=== PATIENT | female | born 1995 | race African-American/Black ===

== ENCOUNTER 2017-01-22 04:20 | Emergency (ER) | payer OTHER, SELFPAY ==
[2017-01-22] MEDS ORDERED: Sodium Chloride 0.9% 1000 ML 1,000 ML IV STA (04:37)
[2017-01-22] MEDS ORDERED: Sodium Chloride 0.9% 1000 ML 1,000 ML ONE (04:42)
--- NOTE | 2017-01-22 04:42 | ERPHSYRPT ---
- History of Present Illness Time Seen by Provider: 01/22/17 04:30 Historian: patient Exam Limitations: clinical condition Patient Subjective Stated Complaint: Pt sts pain in center of chest that radiates upward in chest since 1999 last night. Last meal prior to this was 1800. Pt sts nausea and vomiting x 2. Sts shortness of breath and diaphoresis with pain. Denies cardiac history, denies family hx of early onset cardiac disease. Triage Nursing Assessment: Pt alert, oriented, answers all questions appropriately. skin p/w/d, resps non-labored. 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 SPO2 97% room air. Physician History: PATIENT COMPLAINS OF SHARP MID STERNAL PAIN DISCOMFORT SINCE 8PM LAST NIGHT. 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 DENIES COUGH, DYSPNEA, FEVER, RADIATION OF PAIN TO NECK JAW OR BACK. Timing/Duration: yesterday Activities at Onset: none Quality: sharpness, stabbing Location: central Chest Pain Radiation: no radiation Severity of Pain-Max: moderate Severity of Pain-Current: moderate Modifying Factors: Improves With: breathing Associated Symptoms: hurts to breathe Prior Chest Pain/Cardiac Workup: no prior chest pain Nitro Today/Relief: no nitro taken today Aspirin Treatment Today: no aspirin today Allergies/Adverse Reactions: Sulfa (Sulfonamide Antibiotics) Allergy (Verified 01/22/17 04:23) Rash venom-honey bee [bee venom (honey bee)] Allergy (Verified 07/19/15 07:49) Hx Tetanus, Diphtheria Vaccination/Date Given: Yes Hx Influenza Vaccination/Date Given: Yes Hx Pneumococcal Vaccination/Date Given: No Immunizations Up to Date: Yes - Review of Systems Constitutional: No Fever, No Chills Eyes: No Symptoms Ears, Nose, & Throat: No Symptoms Respiratory: No Symptoms, No Cough, No Dyspnea Cardiac: No Chest Pain, No Edema, No Syncope Abdominal/Gastrointestinal: No Symptoms, No Abdominal Pain, No Nausea, No Vomiting, No Diarrhea Genitourinary Symptoms: No Symptoms, No Dysuria Musculoskeletal: No Symptoms, No Back Pain, No Neck Pain Skin: No Rash Neurological: No Dizziness, No Focal Weakness, No Sensory Changes Psychological: No Symptoms Endocrine: No Symptoms All Other Systems: Reviewed and Negative - Past Medical History Pertinent Past Medical History: No Neurological History: No Pertinent History ENT History: No Pertinent History Cardiac History: No Pertinent History Respiratory History: No Pertinent History Endocrine Medical History: No Pertinent History Musculoskeletal History: No Pertinent History GI Medical History: No Pertinent History History: No Pertinent History Psycho-Social History: No Pertinent History Female Reproductive Disorders: Endometriosis, Other - Past Surgical History Past Surgical History: No - Social History Smoking Status: Never smoker Exposure to second hand smoke: No Drug Use: none Patient Lives Alone: No - Female History Hx Last Menstrual Period: last week - Nursing Vital Signs Nursing Vital Signs: Initial Vital Signs Temperature 98.5 F 01/22/17 04:24 Pulse Rate 52 L 01/22/17 04:24 Respiratory Rate 16 01/22/17 04:24 Blood Pressure 122/60 01/22/17 04:24 O2 Sat by Pulse Oximetry 98 01/22/17 04:24 Pain Scale Pain Intensity 6 - Physical Exam General Appearance: no apparent distress, alert Eye Exam: PERRL/EOMI, eyes nml inspection Ears, Nose, Throat Exam: normal ENT inspection, moist mucous membranes Neck Exam: normal inspection, non-tender, supple, full range of motion Respiratory Exam: normal breath sounds, chest tenderness (PARASTERNAL TENDERNESS T4 TO T7 UPON PALPATION), lungs clear, No respiratory distress Cardiovascular Exam: regular rate/rhythm, normal heart sounds Gastrointestinal/Abdomen Exam: soft, normal bowel sounds (NONTENDER), No tenderness, No mass Back Exam: normal inspection, No CVA tenderness, No vertebral tenderness Extremity Exam: normal inspection, normal range of motion Neurologic Exam: alert, oriented x 3, cooperative, normal mood/affect, sensation nml, No motor deficits Skin Exam: normal color, warm, dry SpO2 Interpretation: normal SpO2: 98 Oxygen Delivery: Room Air - Course EKG Interpreted by Me: RATE, Sinus Rhythm, Sinus Carlos (RATE 47) - Radiology Exams Chest X-ray Interpretation: Interpreted by me, Negative, No Infiltrates Ordered Tests: Active Orders 24 hr Category Date Time Status IV Insertion STAT Care 01/22/17 04:37 Active CHEST 1 VIEW (PORTABLE) Stat Exams 01/22/17 05:36 Ordered BMP Stat Lab 01/22/17 04:50 Completed CBC W DIFF Stat Lab 01/22/17 04:50 Completed D-DIMER QUANTITATION Stat Lab 01/22/17 04:50 Completed HCG,QUALITATIVE URINE Stat Lab 01/22/17 Uncollected TROPONIN Q3H Lab 01/22/17 04:50 Received TROPONIN Q3H Lab 01/22/17 07:45 Ordered TROPONIN Q3H Lab 01/22/17 10:45 Ordered TROPONIN Q3H Lab 01/22/17 13:45 Ordered TROPONIN Q3H Lab 01/22/17 16:45 Ordered UA W/RFX UR CULTURE Stat Lab 01/22/17 04:45 Completed Urine Triage Profile Stat Lab 01/22/17 04:45 Completed Medication Summary Generic Name Dose Route Start Last Admin Trade Name Freq PRN Reason Stop Dose Admin Sodium Chloride 1,000 mls @ 500 mls/hr 01/22/17 04:37 01/22/17 04:43 Sodium Chloride 0.9% 1000 Ml IV 01/22/17 06:36 500 mls/hr .Q2H STA Administration Ketorolac Tromethamine 30 mg 01/22/17 05:36 Toradol 30 Mg Injection IV 01/22/17 05:37 STAT ONE Discontinued Medications Generic Name Dose Route Start Last Admin Trade Name Freq PRN Reason Stop Dose Admin Acetaminophen 650 mg 01/22/17 04:47 01/22/17 04:55 Tylenol 325 Mg PO 01/22/17 04:48 650 mg STAT STA Administration Acetaminophen Confirm 01/22/17 04:54 Tylenol 325 Mg Administered 01/22/17 04:55 Dose 650 mg .ROUTE .STK-MED ONE Sodium Chloride Confirm 01/22/17 04:42 Sodium Chloride 0.9% 1000 Ml Administered 01/22/17 04:43 Dose 1,000 mls @ ud .ROUTE .STK-MED ONE Lab/Rad Data: Laboratory Result Diagrams 01/22/17 04:50 01/22/17 04:50 Laboratory Results 01/22/17 01/22/17 01/22/17 Range/Units 05:28 04:50 04:50 WBC (4.0-10.5) K/mm3 RBC (4.1-5.4) M/mm3 Hgb (12.0-16.0) gm/dl Hct (35-47) % MCV (78-100) fl MCH (26-32) pg MCHC (32-36) g/dl RDW (11.5-14.0) % Plt Count (150-450) K/mm3 MPV (6-9.5) fl Gran % (36.0-66.0) % Lymphocytes % (24.0-44.0) % Monocytes % (0.0-12.0) % Eosinophils % (0.00-5.0) % Basophils % (0.0-0.4) % Basophils # (0-0.4) D-Dimer 498 (0-500) ng/mL Sodium (136-145) mEq/L Potassium (3.5-5.1) mEq/L Chloride (98-107) mEq/L Carbon Dioxide (21-32) mEq/L Anion Gap (5-15) MEQ/L BUN (9-20) mg/dL Creatinine (0.55-1.30) mg/dl Estimated GFR ML/MIN Glucose (70-110) MG/DL Calcium (8.5-10.1) mg/dL Troponin I < 0.017 (0.000-0.056) ng/ml Ur Collection Type Urine Color (YELLOW) Urine Appearance (CLEAR) Urine pH (5-6) Ur Specific [place] (1.005-1.025) Urine Protein (Negative) Urine Ketones (NEGATIVE) Urine Blood (0-5) Turner/ul Urine Nitrite (NEGATIVE) Urine Bilirubin (NEGATIVE) Urine Urobilinogen (0-1) mg/dL Ur Leukocyte Esterase (NEGATIVE) Urine Glucose (NEGATIVE) mg/dL Urine HCG, Qual NEGATIVE (Negative) Urine Opiates Level (NEGATIVE) Ur Methadone (NEGATIVE) Urine Barbiturates (NEGATIVE) Ur Phencyclidine (PCP) (NEGATIVE) Urine Amphetamine (NEGATIVE) U Benzodiazepine Level (NEGATIVE) Urine Cocaine (NEGATIVE) Urine Marijuana (THC) (NEGATIVE) Specimen Received 01/22/17 01/22/17 01/22/17 Range/Units 04:50 04:50 04:45 WBC 11.9 H (4.0-10.5) K/mm3 RBC 4.34 (4.1-5.4) M/mm3 Hgb 13.1 (12.0-16.0) gm/dl Hct 39.2 (35-47) % MCV 90.3 (78-100) fl MCH 30.2 (26-32) pg MCHC 33.4 (32-36) g/dl RDW 12.8 (11.5-14.0) % Plt Count 261 (150-450) K/mm3 MPV 10.3 H (6-9.5) fl Gran % 66.6 H (36.0-66.0) % Lymphocytes % 22.0 L (24.0-44.0) % Monocytes % 8.7 (0.0-12.0) % Eosinophils % 2.4 (0.00-5.0) % Basophils % 0.3 (0.0-0.4) % Basophils # 0.04 (0-0.4) D-Dimer (0-500) ng/mL Sodium 140 (136-145) mEq/L Potassium 3.9 (3.5-5.1) mEq/L Chloride 104 (98-107) mEq/L Carbon Dioxide 29.6 (21-32) mEq/L Anion Gap 10.5 (5-15) MEQ/L BUN 14 (9-20) mg/dL Creatinine 0.83 (0.55-1.30) mg/dl Estimated GFR > 60 ML/MIN Glucose 97 (70-110) MG/DL Calcium 8.8 (8.5-10.1) mg/dL Troponin I (0.000-0.056) ng/ml Ur Collection Type CLEAN CATCH Urine Color YELLOW (YELLOW) Urine Appearance CLEAR (CLEAR) Urine pH 8.0 (5-6) Ur Specific [place] 1.005 (1.005-1.025) Urine Protein NEGATIVE (Negative) Urine Ketones NEGATIVE (NEGATIVE) Urine Blood NEGATIVE (0-5) Turner/ul Urine Nitrite NEGATIVE (NEGATIVE) Urine Bilirubin NEGATIVE (NEGATIVE) Urine Urobilinogen NORMAL (0-1) mg/dL Ur Leukocyte Esterase NEGATIVE (NEGATIVE) Urine Glucose NEGATIVE (NEGATIVE) mg/dL Urine HCG, Qual (Negative) Urine Opiates Level (NEGATIVE) Ur Methadone (NEGATIVE) Urine Barbiturates (NEGATIVE) Ur Phencyclidine (PCP) (NEGATIVE) Urine Amphetamine (NEGATIVE) U Benzodiazepine Level (NEGATIVE) Urine Cocaine (NEGATIVE) Urine Marijuana (THC) (NEGATIVE) Specimen Received 01/22/17:0430 01/22/17 Range/Units 04:45 WBC (4.0-10.5) K/mm3 RBC (4.1-5.4) M/mm3 Hgb (12.0-16.0) gm/dl Hct (35-47) % MCV (78-100) fl MCH (26-32) pg MCHC (32-36) g/dl RDW (11.5-14.0) % Plt Count (150-450) K/mm3 MPV (6-9.5) fl Gran % (36.0-66.0) % Lymphocytes % (24.0-44.0) % Monocytes % (0.0-12.0) % Eosinophils % (0.00-5.0) % Basophils % (0.0-0.4) % Basophils # (0-0.4) D-Dimer (0-500) ng/mL Sodium (136-145) mEq/L Potassium (3.5-5.1) mEq/L Chloride (98-107) mEq/L Carbon Dioxide (21-32) mEq/L Anion Gap (5-15) MEQ/L BUN (9-20) mg/dL Creatinine (0.55-1.30) mg/dl Estimated GFR ML/MIN Glucose (70-110) MG/DL Calcium (8.5-10.1) mg/dL Troponin I (0.000-0.056) ng/ml Ur Collection Type Urine Color (YELLOW) Urine Appearance (CLEAR) Urine pH (5-6) Ur Specific [place] (1.005-1.025) Urine Protein (Negative) Urine Ketones (NEGATIVE) Urine Blood (0-5) Turner/ul Urine Nitrite (NEGATIVE) Urine Bilirubin (NEGATIVE) Urine Urobilinogen (0-1) mg/dL Ur Leukocyte Esterase (NEGATIVE) Urine Glucose (NEGATIVE) mg/dL Urine HCG, Qual (Negative) Urine Opiates Level NEG. (NEGATIVE) Ur Methadone NEG. (NEGATIVE) Urine Barbiturates NEG. (NEGATIVE) Ur Phencyclidine (PCP) NEG. (NEGATIVE) Urine Amphetamine NEG. (NEGATIVE) U Benzodiazepine Level NEG. (NEGATIVE) Urine Cocaine NEG. (NEGATIVE) Urine Marijuana (THC) POS. (NEGATIVE) Specimen Received - Progress Progress: improved, re-examined Progress Note: 01/22/17 05:37 PATIENT GIVEN TORADOL 30MG IV, TYLENOL 650MG ORALLY Counseled pt/family regarding: lab results, diagnosis, need for follow-up, rad results - Departure Time of Disposition: 06:00 Departure Disposition: Home Clinical Impression: ACUTE CHEST WALL PAIN Condition: Stable Critical Care Time: No Referrals: DEVIN GARCIA MD [Primary Care Provider] - Additional Instructions: TORADOL 10MG EVERY 6 HOURS FOR MILD TO MODERATE PAIN DISCOMFORT. ULTRAM 50MG EVERY 4 HOURS FOR SEVERE PAIN. CONSULT YOUR FAMILY PHYSICIAN FOR EVALUATION IN 5 -6 DAYS Prescriptions: Ketorolac Tromethamine [Toradol] 10 mg PO Q6H PRN PRN #20 tablet PRN Reason: Pain Tramadol HCl 50 mg [Ultram 50 mg] 50 mg PO [id number] PRN #15 tablet PRN Reason: Pain
[2017-01-22] MEDS ORDERED: TYLENOL 325 MG PO STA (04:47)
[2017-01-22] MEDS ORDERED: TYLENOL 325 MG ONE (04:54)
[2017-01-22 04:57] LABS: ADD URINE CULTURE? NO (NO); Bilirubin NEGATIVE (NEGATIVE); Blood NEGATIVE Ery/ul (0-5); COMPLETE URINE MICROSCOPIC? NO; Collection Type CLEAN CATCH; Glucose NEGATIVE (NEGATIVE); Leukocyte Esterase NEGATIVE (NEGATIVE)
[2017-01-22 04:59] LABS: BASOPHIL % 0.3 % (0.0-0.4); Eosinophil % 2.4 % (0.00-5.0); Granulocytes % 66.6 % (36.0-66.0); Mean Cell Volume 90.3 fl (78-100); Mean Corpuscular Hemoglobin 30.2 pg (26-32); Mean Platelet Volume 10.3 fl (6-9.5); Monocytes % 8.7 % (0.0-12.0); Platelet Count 261 K/mm3 (150-450); Red Blood Count 4.34 M/mm3 (4.1-5.4); Red Cell Distribution Width 12.8 % (11.5-14.0); White Blood Count 11.9 K/mm3 (4.0-10.5)
[2017-01-22 05:13] LABS: ANION GAP 10.5 MEQ/L (5-15); BLOOD UREA NITROGEN 14 mg/dL (9-20); CHLORIDE 104 mEq/L (98-107); Carbon Dioxide 29.6 mEq/L (21-32); Glucose 97 MG/DL (70-110); Potassium 3.9 mEq/L (3.5-5.1); SODIUM 140 mEq/L (136-145)
[2017-01-22] MEDS ORDERED: TORAdol 30 mg Injection IV ONE (05:36)
[2017-01-22] MEDS ORDERED: TORAdol 30 mg Injection ONE (05:39)
[2017-01-22 05:48] VITALS: BP 119/72; PULSE 60
[2017-01-22 05:50] VITALS: O2SAT 98
--- NOTE | 2017-01-22 08:51 | XRAY ---
Indication: Chest pain. Comparison: None Portable chest demonstrates normal heart, lungs, and bony thorax.
== END 2017-01-22 06:18 | disposition home or self-care (01) ==
LOC: ED 04:20
DX: R07.89 Other chest pain (principal)
CPT/HCPCS: 36000; 36415; 71010; 80048; 80307; 81002; 84484; 84703; 85025; 85379; 93005; 96360; 96374; 99284; J1885; A9270-GY

== ENCOUNTER 2017-07-09 06:49 | Emergency (ER) | payer OTHER ==
[2017-07-09 06:59] VITALS: BP 110/80; O2SAT 98
[2017-07-09] MEDS ORDERED: PROVENTIL 2.5 MG/3 ML NEB IH ONE ×2 (07:25→07:48)
[2017-07-09] MEDS ORDERED: MOTRIN 600 MG PO ONE (07:26)
[2017-07-09] MEDS ORDERED: MOTRIN 600 MG ONE (07:30)
--- NOTE | 2017-07-09 07:34 | ERPHSYRPT ---
- History of Present Illness Time Seen by Provider: 07/09/17 07:09 Source: patient Patient Subjective Stated Complaint: Chest Pain Triage Nursing Assessment: Pt presents to the Ed with complaints of chest pain beginning yesterday and continuing today. Pt states pain has decreased since last night, but states pain remains 5/10 and describes as pressure. Pt states "I 've had a cold and it may just be from that." No distress noted. Physician History: CC: cold symptoms Hx: 22 y/o patient of Dr Garcia. She has some chest pain since Sunday (2 days) . She states she has cold symptoms, cough, nasal congestion. Pain is sharp. Worse with deep breath and lying flat. No hx of venous thromboembolic disease. No fever or chills. Cough is dry and mild. No V/D. Normal recent LMP. She works in a [employer]. Timing/Duration: day(s) (2) Allergies/Adverse Reactions: Sulfa (Sulfonamide Antibiotics) Allergy (Verified 01/22/17 04:23) Rash venom-honey bee [bee venom (honey bee)] Allergy (Verified 07/19/15 07:49) Hx Tetanus, Diphtheria Vaccination/Date Given: Yes Hx Influenza Vaccination/Date Given: No Hx Pneumococcal Vaccination/Date Given: No Immunizations Up to Date: No - Review of Systems Constitutional: Malaise, No Fever, No Chills Eyes: No Symptoms Ears, Nose, & Throat: Nose Congestion Respiratory: Cough Cardiac: Chest Pain Abdominal/Gastrointestinal: No Abdominal Pain, No Nausea, No Vomiting, No Diarrhea Musculoskeletal: No Back Pain Skin: No Rash Neurological: No Headache All Other Systems: Reviewed and Negative - Past Medical History Pertinent Past Medical History: No Neurological History: No Pertinent History ENT History: No Pertinent History Cardiac History: No Pertinent History Respiratory History: No Pertinent History Endocrine Medical History: No Pertinent History Musculoskeletal History: No Pertinent History GI Medical History: No Pertinent History History: No Pertinent History Psycho-Social History: No Pertinent History Female Reproductive Disorders: Endometriosis, Other - Past Surgical History Past Surgical History: No - Social History Smoking Status: Never smoker Exposure to second hand smoke: Yes Drug Use: none Patient Lives Alone: No - Female History Hx Last Menstrual Period: 06/24/2017 Hx Now: No - Nursing Vital Signs Nursing Vital Signs: Initial Vital Signs Temperature 97.8 F 07/09/17 06:55 Pulse Rate 51 L 07/09/17 06:55 Respiratory Rate 18 07/09/17 06:55 Blood Pressure 110/80 07/09/17 06:55 O2 Sat by Pulse Oximetry 98 07/09/17 06:55 Pain Scale Pain Intensity 3 - Physical Exam General Appearance: alert Eye Exam: PERRL/EOMI Ears, Nose, Throat Exam: moist mucous membranes, other (nasal congestion) Neck Exam: normal inspection, non-tender, supple Respiratory Exam: normal breath sounds, lungs clear, No respiratory distress Cardiovascular Exam: regular rate/rhythm, No murmur, No friction rub, No gallop Gastrointestinal/Abdomen Exam: soft, No tenderness, No distention Back Exam: normal inspection, normal range of motion Extremity Exam: normal inspection, normal range of motion, No calf tenderness, No pedal edema Neurologic Exam: alert, oriented x 3, cooperative, sensation nml, No motor deficits Skin Exam: warm, dry, No rash SpO2 Interpretation: normal SpO2: 98 Oxygen Delivery: Room Air - Course Nursing assessment & vital signs reviewed: Yes EKG Interpreted by Me: RATE (51), Sinus Carlos, NORMAL AXIS, NORMAL INTERVALS ( QTc 398), NORMAL QRS (possible RVH), NORMAL ST-T - Radiology Exams cxr X-ray Interpretation: Teleradiologist Report, Negative Ordered Tests: Active Orders 24 hr Category Date Time Status EKG-ER Only STAT Care 07/09/17 07:25 Active CHEST 2 VIEWS (PA AND LAT) Stat Exams 07/09/17 07:25 Completed CBC W DIFF Stat Lab 07/09/17 07:50 Completed CMP Stat Lab 07/09/17 07:50 Completed TROPONIN Q3H Lab 07/09/17 07:50 Completed TROPONIN Q3H Lab 07/09/17 10:45 Ordered TROPONIN Q3H Lab 07/09/17 13:45 Ordered TROPONIN Q3H Lab 07/09/17 16:45 Ordered TROPONIN Q3H Lab 07/09/17 19:45 Ordered Respiratory Nebulizer STAT RT 07/09/17 07:25 Active Medication Summary Discontinued Medications Generic Name Dose Route Start Last Admin Trade Name Freq PRN Reason Stop Dose Admin Albuterol Sulfate 2.5 mg 07/09/17 07:25 07/09/17 07:55 Proventil 2.5 Mg/3 Ml Neb IH 07/09/17 07:26 2.5 mg STAT ONE Administration Albuterol Sulfate Confirm 07/09/17 07:48 Proventil 2.5 Mg/3 Ml Neb Administered 07/09/17 07:49 Dose 2.5 mg IH .STK-MED ONE Ibuprofen 600 mg 07/09/17 07:26 07/09/17 07:31 Motrin 600 Mg PO 07/09/17 07:27 600 mg STAT ONE Administration Ibuprofen Confirm 07/09/17 07:30 Motrin 600 Mg Administered 07/09/17 07:31 Dose 600 mg .ROUTE .STK-MED ONE Lab/Rad Data: Laboratory Result Diagrams 07/09/17 07:50 07/09/17 07:50 Laboratory Results 07/09/17 07/09/17 07/09/17 Range/Units 07:50 07:50 07:50 WBC 7.2 (4.0-10.5) K/mm3 RBC 4.28 (4.1-5.4) M/mm3 Hgb 12.7 (12.0-16.0) gm/dl Hct 39.2 (35-47) % MCV 91.6 (78-100) fl MCH 29.7 (26-32) pg MCHC 32.4 (32-36) g/dl RDW 13.3 (11.5-14.0) % Plt Count 218 (150-450) K/mm3 MPV 10.8 H (6-9.5) fl Gran % 55.4 (36.0-66.0) % Lymphocytes % 33.3 (24.0-44.0) % Monocytes % 7.6 (0.0-12.0) % Eosinophils % 3.3 (0.00-5.0) % Basophils % 0.4 (0.0-0.4) % Basophils # 0.03 (0-0.4) Sodium 140 (136-145) mEq/L Potassium 4.5 (3.5-5.1) mEq/L Chloride 106 (98-107) mEq/L Carbon Dioxide 26.8 (21-32) mEq/L Anion Gap 12.0 (5-15) MEQ/L BUN 9 (9-20) mg/dL Creatinine 0.78 (0.55-1.30) mg/dl Estimated GFR > 60 ML/MIN Glucose 100 (70-110) MG/DL Calcium 8.7 (8.5-10.1) mg/dL Total Bilirubin 0.30 (0.2-1.0) mg/dL AST 19 (15-37) U/L ALT 19 (12-78) U/L Alkaline Phosphatase 134 H (46-116) U/L Troponin I < 0.017 (0.000-0.056) ng/ml Serum Total Protein 6.9 (6.4-8.2) gm/dL Albumin 3.5 (3.4-5.0) g/dL - Progress Progress Note: 07/09/17 07:35 PERC negative. She had prior EKG 8-17 with bradycardia HR 47. She is nontoxic appearing. 07/09/17 09:04 She feels better after motrin and alb neb. No sign of PE. No sign of myocarditis. Will release with instr. Counseled pt/family regarding: lab results, diagnosis, need for follow-up, rad results - Departure Time of Disposition: 09:05 Departure Disposition: Home Clinical Impression: Acute bronchitis Condition: Stable Critical Care Time: No Referrals: DEVIN GARCIA MD [Primary Care Provider] - Instructions: Acute Bronchitis Additional Instructions: Rx ibuprofen. Rx albuterol MDI. Plenty of oral fluids. Follow up with Dr Garcia if not better in one week. Return for problems or concerns. Prescriptions: Ibuprofen 600 mg PO Q6H PRN PRN #20 tablet PRN Reason: Pain Albuterol Sulfate [Albuterol Sulfate Hfa] 2 puff IH Q4-6HPRN PRN #1 hfa.[id number].[email or web address] PRN Reason: cough or wheeze
[2017-07-09 07:59] VITALS: PULSE 60
[2017-07-09 08:03] LABS: BASOPHIL % 0.4 % (0.0-0.4); Basophil (Absolute #) 0.03 (0-0.4); Eosinophil % 3.3 % (0.00-5.0); Eosinophil (Absolute #) 0.24 (0-0.5); Granulocyte Absolute (ANC) 4.01 (1.4-6.9); Granulocytes % 55.4 % (36.0-66.0); Hematocrit 39.2 % (35-47); Hemoglobin 12.7 gm/dl (12.0-16.0); Lymphocyte (Absolute #) 2.41 (1.0-4.6); Lymphocytes % 33.3 % (24.0-44.0); Mean Cell Volume 91.6 fl (78-100); Mean Corpuscular Hemoglobin 29.7 pg (26-32); Mean Corpuscular Hgb Concent. 32.4 g/dl (32-36); Mean Platelet Volume 10.8 fl (6-9.5); Monocyte (Absolute #) 0.55 (0.0-1.3); Monocytes % 7.6 % (0.0-12.0); Platelet Count 218 K/mm3 (150-450); Red Blood Count 4.28 M/mm3 (4.1-5.4); Red Cell Distribution Width 13.3 % (11.5-14.0); White Blood Count 7.2 K/mm3 (4.0-10.5)
[2017-07-09 08:24] LABS: ALBUMIN 3.5 g/dL (3.4-5.0); ALKALINE PHOSPHATASE 134 U/L (46-116); BLOOD UREA NITROGEN 9 mg/dL (9-20); CHLORIDE 106 mEq/L (98-107); Calcium 8.7 mg/dL (8.5-10.1); Carbon Dioxide 26.8 mEq/L (21-32); Creatinine 1 0.78 mg/dl (0.55-1.30); EST GLOMERULAR FILTRATION RATE > 60 ML/MIN; Glucose 100 MG/DL (70-110); Potassium 4.5 mEq/L (3.5-5.1); SGOT/AST 19 U/L (15-37); SGPT/ALT 19 U/L (12-78); SODIUM 140 mEq/L (136-145); Total Protein 6.9 gm/dL (6.4-8.2)
--- NOTE | 2017-07-09 09:00 | XRAY ---
Indication: Cough and chest pain. Comparison: January 22, 2017. PA/lateral chest again demonstrates normal heart, lungs, and bony thorax with a few incidental calcified granulomas.
== END 2017-07-09 09:18 | disposition home or self-care (01) ==
LOC: ED 06:49
DX: J20.9 Acute bronchitis, unspecified (principal); R00.1 Bradycardia, unspecified
CPT/HCPCS: 36415; 71046; 80053; 84484; 85025; 93005; 94640; 99283; 99284; A9270-GY

== ENCOUNTER 2020-03-13 01:23 | Inpatient (IN) | payer BC ==
[2020-03-13 01:57] LABS: Amphetamine,Urine NEGATIVE (NEGATIVE); Barbiturate,Urine NEGATIVE (NEGATIVE); Benzodiazepine,Urine NEGATIVE (NEGATIVE); Cocaine,Urine NEGATIVE (NEGATIVE); Methadone,Urine NEGATIVE (NEGATIVE); Opiate,Urine NEGATIVE (NEGATIVE); PCP,Urine NEGATIVE (NEGATIVE); THC,Urine NEGATIVE (NEGATIVE)
[2020-03-13] MEDS ORDERED: Nubain 10 MG/ML IV PRN (03:28)
[2020-03-13] MEDS ORDERED: Zofran 4 MG/2 ML VIAL IV PRN (03:28)
[2020-03-13] MEDS ORDERED: TYLENOL EXTRA STRENGTH 500 MG PO PRN (03:28)
[2020-03-13] MEDS: Lactated Ringers 1,000 ML IV SCH ×3 (04:31→17:45)
[2020-03-13 04:56] LABS: Absolute Neutrophil Ct (ANC) 11.33 (1.4-6.9); BASOPHIL % 0.1 % (0.0-0.4); Basophil (Absolute #) 0.02 (0-0.4); Eosinophil % 0.6 % (0.00-5.0); Eosinophil (Absolute #) 0.09 (0-0.5); Hematocrit 38.1 % (35-47); Lymphocyte (Absolute #) 1.66 (1.0-4.6); Lymphocytes % 11.6 % (24.0-44.0); Mean Corpuscular Hemoglobin 30.4 pg (26-32); Mean Corpuscular Hgb Concent. 34.1 g/dl (32-36); Mean Platelet Volume 10.9 fl (7.5-11.0); Monocytes % 8.4 % (0.0-12.0); Neutrophil % 79.3 % (36.0-66.0); Platelet Count 260 K/mm3 (150-450); Red Blood Count 4.28 M/mm3 (4.1-5.4); Red Cell Distribution Width 13.3 % (11.5-14.0); White Blood Count 14.3 K/mm3 (4.0-10.5)
[2020-03-13] MEDS ORDERED: XYLOCAINE 1% HCL 20 ML MDV IJ PRN (08:00)
[2020-03-13] MEDS ORDERED: PITOCIN 30 UNITS/ LR 500 ML 30 UNITS/500 ML IV.SOLN. IV SCH (08:00)
[2020-03-13] MEDS ORDERED: STADOL 2 MG IV PRN (12:59)
[2020-03-13] MEDS ORDERED: STADOL 2 MG ONE (13:02)
[2020-03-13] MEDS ORDERED: OB EPIDURAL NAROPIN/SUFENTANIL IN NACL EPIDURAL PRN (15:48)
[2020-03-13] MEDS ORDERED: Lactated Ringers 1,000 ML IV ONE (15:53)
[2020-03-13] MEDS ORDERED: BENADRYL 50 MG/ML IV ONE (19:57)
[2020-03-13] MEDS ORDERED: Dulcolax 10 MG SUPP PR PRN (22:21)
[2020-03-13] MEDS ORDERED: Anucort-HC SUPPOSITORY PR PRN (22:21)
[2020-03-13] MEDS ORDERED: LANSINOH 40 GM TOP PRN (22:21)
[2020-03-13] MEDS ORDERED: CORTISONE 1% CREAM TP PRN (22:21)
[2020-03-13] MEDS ORDERED: NORCO 5/325 MG PO PRN (22:21)
[2020-03-13] MEDS ORDERED: Mylicon 80MG PO PRN (22:21)
[2020-03-13] MEDS: MOTRIN 400 MG PO PRN (22:36)
[2020-03-13] MEDS: TUCKS TP PRN (22:37)
[2020-03-13] MEDS: Dermoplast Spray TP PRN (22:37)
[2020-03-14 00:20] VITALS: O2SAT 99
[2020-03-14 06:07] LABS: Hematocrit 32.9 % (35-47); Hemoglobin 11.1 gm/dl (12.0-16.0); Mean Cell Volume 90.6 fl (78-100); Mean Corpuscular Hemoglobin 30.6 pg (26-32); Mean Corpuscular Hgb Concent. 33.7 g/dl (32-36); Platelet Count 251 K/mm3 (150-450); Red Blood Count 3.63 M/mm3 (4.1-5.4); Red Cell Distribution Width 13.4 % (11.5-14.0); White Blood Count 21.6 K/mm3 (4.0-10.5)
[2020-03-14 07:22] LABS: Lymphocytes 11 % (24-44); Monocyte 6 % (0.0-12.0); Neutrophils 83 % (36.0-66.0); Platelet Estimate NORMAL (NORMAL); Total Cells Counted 100
[2020-03-14] MEDS: Colace 100 MG PO SCH ×2 (09:08→22:02)
[2020-03-14] MEDS: FERREX 150 PO SCH (09:09)
[2020-03-14] MEDS: Augmentin 875-125 Tablet PO SCH (12:46)
[2020-03-14 12:59] LABS: Appearance CLEAR (CLEAR); Bilirubin NEGATIVE (NEGATIVE); Blood LARGE Ery/ul (0-5); Glucose NEGATIVE (NEGATIVE); Ketones NEGATIVE (NEGATIVE); Leukocyte Esterase SMALL (NEGATIVE); Mucus SLIGHT /HPF (NEGATIVE); Nitrite NEGATIVE (NEGATIVE); Protein,Urine Dip NEGATIVE (Negative); Specific Gravity 1.008 (1.005-1.025); Urobilinogen NEGATIVE mg/dL (0-1)
[2020-03-14 13:00] LABS: RBC >101 /HPF (0-2)
[2020-03-14] MEDS: MOTRIN 400 MG PO PRN (18:15)
[2020-03-15] MEDS: Augmentin 875-125 Tablet PO SCH ×2 (00:05→12:03)
[2020-03-15] MEDS: MOTRIN 400 MG PO PRN (00:15)
[2020-03-15] MEDS: Dermoplast Spray TP PRN (04:47)
[2020-03-15] MEDS: TUCKS TP PRN (04:48)
[2020-03-15 05:17] VITALS: PULSE 76
[2020-03-15 05:55] LABS: Absolute Neutrophil Ct (ANC) 8.87 (1.4-6.9); BASOPHIL % 0.2 % (0.0-0.4); Basophil (Absolute #) 0.03 (0-0.4); Eosinophil (Absolute #) 0.27 (0-0.5); Hematocrit 31.1 % (35-47); Hemoglobin 10.2 gm/dl (12.0-16.0); Lymphocyte (Absolute #) 2.82 (1.0-4.6); Lymphocytes % 21.3 % (24.0-44.0); Mean Cell Volume 92.8 fl (78-100); Mean Corpuscular Hemoglobin 30.4 pg (26-32); Mean Corpuscular Hgb Concent. 32.8 g/dl (32-36); Mean Platelet Volume 10.9 fl (7.5-11.0); Monocyte (Absolute #) 1.26 (0.0-1.3); Monocytes % 9.5 % (0.0-12.0); Platelet Count 203 K/mm3 (150-450); Red Blood Count 3.35 M/mm3 (4.1-5.4); Red Cell Distribution Width 13.5 % (11.5-14.0); White Blood Count 13.3 K/mm3 (4.0-10.5)
[2020-03-15 10:40] VITALS: BP 106/56
[2020-03-15] MEDS: Colace 100 MG PO SCH (10:41)
[2020-03-15] MEDS: FERREX 150 PO SCH (10:41)
== END 2020-03-15 16:45 | disposition home or self-care (01) | DRG 807 ==
LOC: OB 01:23 → OBSVTOIN 03:00
PROVIDERS: ADMIT Family Medicine; ATTEND Family Medicine
PROC: 10E0XZZ Delivery of Products of Conception, External Approach (ICD-10-PCS; principal; 2020-03-13)
PROC: 0HQ9XZZ Repair Perineum Skin, External Approach (ICD-10-PCS; 2020-03-13)
DX: O69.81X0 Labor and delivery complicated by cord around neck, without compression, not applicable or unspecified (principal); Z37.0 Single live birth; O70.0 First degree perineal laceration during delivery; Z3A.39 39 weeks gestation of pregnancy
CPT/HCPCS: 36415; 80307; 81001; 85025; 87340; G0378; J0595; J1200; J2300; J2590; J2795; A9270-GY

== ENCOUNTER 2022-11-07 12:09 | Emergency (ER) | payer OTHER ==
[2022-11-07] MEDS ORDERED: TORAdol 30 mg Injection IV ONE (12:56)
[2022-11-07] MEDS ORDERED: Sodium Chloride 0.9% 1000 ML 1,000 ML IV STA (12:56)
[2022-11-07] MEDS ORDERED: Zofran 4 MG/2 ML VIAL IV ONE ×2 (12:59→15:23)
[2022-11-07] MEDS ORDERED: Zofran 4 MG/2 ML VIAL ONE ×2 (13:02→15:29)
[2022-11-07] MEDS ORDERED: TORAdol 30 mg Injection ONE (13:02)
[2022-11-07] MEDS ORDERED: Sodium Chloride 0.9% 1000 ML 1,000 ML ONE (13:02)
--- NOTE | 2022-11-07 13:02 | ERPHSYRPT ---
- History of Present Illness Time Seen by Provider: 11/07/22 12:59 Exam Limitations: no limitations Patient Subjective Stated Complaint: pt states I have had stomach pain since 8 this morning. I have a history of gallstones. Triage Nursing Assessment: pt ambulated into the er; pt is axo x4; c/o abd pain; pt states 7/10 pain to epigastric region; c/o nausea; pt denies vomiting and diarrhea; mucus membranes pink and moist; skin PDW; no respiratory distress present; vitals wnl Physician History: Patient is a 27-year-old female presents to our ED for evaluation of epigastric pain that started this morning at 8 AM. Patient advised that she has a history of gallstones. Patient experienced biliary colic approximately 2 to 3 years ago. Patient states that she was not a candidate at that time for cholecystectomy. Pain worse with palpation. Pain improved with rest. No trauma. No fever. Patient is mildly nauseous. Pain rated 7 out of 10. Patient is otherwise healthy. She voices no other complaints or concerns at this time. Portions of this note were created with voice recognition technology. There may be grammatical, spelling, punctuation or sound alike errors Timing/Duration: today (Pain started 8 AM today.) Activities at Onset: none Quality: aching Abdominal Pain Onset Location: epigastric Pain Radiation: no radiation Severity of Pain-Max: moderate Severity of Pain-Current: mild Modifying Factors: Improves With: nothing Associated Symptoms: nausea, No vomiting Previous symptoms: same symptoms as today Allergies/Adverse Reactions: Sulfa (Sulfonamide Antibiotics) Allergy (Verified 11/07/22 12:17) Rash venom-honey bee [bee venom (honey bee)] Allergy (Verified 11/07/22 12:17) Home Medications: Dextroamphetamine/Amphetamine [Dextroamp-Amphetamin 20 mg Tab] 20 mg PO DAILY 11/07/22 [History] Minocycline HCl 100 mg PO DAILY 11/07/22 [History] Sertraline HCl [Zoloft] 25 mg PO DAILY 11/07/22 [History] Hx Tetanus, Diphtheria Vaccination/Date Given: Yes Hx Influenza Vaccination/Date Given: No Hx Pneumococcal Vaccination/Date Given: No Travel Risk - International Travel Have you traveled outside of the country in past 3 weeks: No - Coronavirus Screening Are you exhibiting any of the following symptoms?: No Close contact with a COVID-19 positive Pt in past 14-21 Days: No - Vaccine Status Have you recieved a Covid-19 vaccination: No - Review of Systems Constitutional: No Symptoms, No Fever, No Chills Eyes: No Symptoms Ears, Nose, & Throat: No Symptoms Respiratory: No Symptoms, No Cough, No Dyspnea Cardiac: No Symptoms, No Chest Pain, No Edema, No Syncope Abdominal/Gastrointestinal: No Symptoms, No Abdominal Pain, No Nausea, No Vomiting, No Diarrhea Genitourinary Symptoms: No Symptoms, No Dysuria Musculoskeletal: No Symptoms, No Back Pain, No Neck Pain Skin: No Symptoms, No Rash Neurological: No Symptoms, No Dizziness, No Focal Weakness, No Sensory Changes Psychological: No Symptoms Endocrine: No Symptoms Hematologic/Lymphatic: No Symptoms Immunological/Allergic: No Symptoms All Other Systems: Reviewed and Negative - Past Medical History Pertinent Past Medical History: Yes Neurological History: No Pertinent History ENT History: No Pertinent History Cardiac History: No Pertinent History Respiratory History: No Pertinent History Endocrine Medical History: No Pertinent History Musculoskeletal History: No Pertinent History, Other GI Medical History: No Pertinent History History: No Pertinent History Psycho-Social History: Anxiety, Depression Female Reproductive Disorders: Endometriosis, Other Other Medical History: PT STATES SHE HAD GALL STONES THAT MAY NEED REMOVED AT A LATER DATE. - Past Surgical History Past Surgical History: Yes Neuro Surgical History: No Pertinent History Cardiac: No Pertinent History Respiratory: No Pertinent History Gastrointestinal: No Pertinent History Genitourinary: No Pertinent History Musculoskeletal: No Pertinent History Female Surgical History: No Pertinent History Other Surgical History: PT STATES NOSE BROKE IN 2018 ANSD REPAIRED - Social History Smoking Status: Never smoker Exposure to second hand smoke: Yes Drug Use: marijuana Patient Lives Alone: No - Female History Hx Now: No - Nursing Vital Signs Nursing Vital Signs: Initial Vital Signs Temperature 97.9 F 11/07/22 12:19 Pulse Rate 61 11/07/22 12:19 Respiratory Rate 16 11/07/22 12:19 Blood Pressure 138/68 11/07/22 12:19 O2 Sat by Pulse Oximetry 99 11/07/22 12:19 Pain Scale Pain Intensity 5 - Physical Exam General Appearance: no apparent distress, alert Eye Exam: PERRL/EOMI, eyes nml inspection Ears, Nose, Throat Exam: normal ENT inspection, TMs normal, pharynx normal, moist mucous membranes Neck Exam: normal inspection, non-tender, supple, full range of motion Respiratory Exam: normal breath sounds, lungs clear, airway intact, No respiratory distress Cardiovascular Exam: regular rate/rhythm, normal heart sounds, normal peripheral pulses Gastrointestinal/Abdomen Exam: soft, tenderness (Epigastric tenderness to palpation. No guarding no rebound), No mass Back Exam: normal inspection, normal range of motion, No CVA tenderness, No vertebral tenderness Extremity Exam: normal inspection, normal range of motion, pelvis stable Neurologic Exam: alert, oriented x 3, cooperative, normal mood/affect, nml cerebellar function, sensation nml, No motor deficits Skin Exam: normal color, warm, dry Lymphatic Exam: No adenopathy SpO2 Interpretation: normal SpO2: 99 O2 Delivery: Room Air - Course Nursing assessment & vital signs reviewed: Yes - Radiology Ultrasound Exam Gallbladder Ultrasound: discussed w/radiologist (Gallbladder is unremarkable) Ordered Tests: Active Orders 24 hr Category Date Time Status IV Insertion STAT Care 11/07/22 12:56 Active ABDOMEN AND PELVIS W CONTRAST [CT] Stat Exams 11/07/22 13:03 Completed GALLBLADDER [US] Stat Exams 11/07/22 12:56 Completed CBC W DIFF Stat Lab 11/07/22 13:08 Completed CMP Stat Lab 11/07/22 13:08 Completed CULTURE,URINE Stat Lab 11/07/22 13:01 Received HCG QUALITATIVE, URINE Stat Lab 11/07/22 13:08 Completed LIPASE Stat Lab 11/07/22 13:08 Completed TROPONIN Q4H Lab 11/07/22 13:08 Completed TROPONIN Q4H Lab 11/07/22 17:00 Ordered TROPONIN Q4H Lab 11/07/22 21:00 Ordered UA W/RFX UR CULTURE Stat Lab 11/07/22 13:01 Completed Medication Summary Discontinued Medications Generic Name Dose Route Start Last Admin Trade Name Freq PRN Reason Stop Dose Admin Sodium Chloride 1,000 mls @ 999 mls/hr 11/07/22 12:56 11/07/22 14:05 Sodium Chloride 0.9% 1000 Ml IV 11/07/22 13:56 Infused .Q1H1M STA Infusion Sodium Chloride Confirm 11/07/22 13:02 Sodium Chloride 0.9% 1000 Ml Administered 11/07/22 13:03 Dose 1,000 mls @ ud .ROUTE .STK-MED ONE Ketorolac Tromethamine 30 mg 11/07/22 12:56 11/07/22 13:03 Ketorolac Tromethamine 30 Mg/Ml Inj IV 11/07/22 12:57 30 mg STAT ONE Administration Ketorolac Tromethamine Confirm 11/07/22 13:02 Ketorolac Tromethamine 30 Mg/Ml Inj Administered 11/07/22 13:03 Dose 30 mg .ROUTE .STK-MED ONE Nitrofurantoin Macrocrystals 100 mg 11/07/22 15:16 11/07/22 15:17 Nitrofurantoin Macro 100 Mg Capsule PO 11/07/22 15:17 100 mg STAT ONE Administration Nitrofurantoin Macrocrystals Confirm 11/07/22 15:16 Nitrofurantoin Macro 100 Mg Capsule Administered 11/07/22 15:17 Dose 100 mg .ROUTE .STK-MED ONE Ondansetron HCl 4 mg 11/07/22 12:59 11/07/22 13:03 Ondansetron Hcl 4 Mg/2 Ml Vial IV 11/07/22 13:00 4 mg STAT ONE Administration Ondansetron HCl Confirm 11/07/22 13:02 Ondansetron Hcl 4 Mg/2 Ml Vial Administered 11/07/22 13:03 Dose 4 mg .ROUTE .STK-MED ONE Ondansetron HCl 4 mg 11/07/22 15:23 11/07/22 15:32 Ondansetron Hcl 4 Mg/2 Ml Vial IV 11/07/22 15:24 4 mg STAT ONE Administration Ondansetron HCl Confirm 11/07/22 15:29 Ondansetron Hcl 4 Mg/2 Ml Vial Administered 11/07/22 15:30 Dose 4 mg .ROUTE .STK-MED ONE Pantoprazole Sodium 40 mg 11/07/22 15:23 11/07/22 15:32 Pantoprazole 40 Mg Vial IV 11/07/22 15:24 40 mg STAT ONE Administration Pantoprazole Sodium Confirm 11/07/22 15:29 Pantoprazole 40 Mg Vial Administered 11/07/22 15:30 Dose 40 mg IV .STK-MED ONE Lab/Rad Data: Laboratory Result Diagrams 11/07/22 13:08 11/07/22 13:08 Laboratory Results 11/07/22 11/07/22 11/07/22 Range/Units 13:08 13:08 13:08 WBC (4.0-10.5) x10^3/uL RBC (4.1-5.4) x10^6/uL Hgb (12.0-16.0) g/dL Hct (35-47) % MCV (78-100) fL MCH (26-32) pg MCHC (32-36) g/dL RDW (11.5-14.0) % Plt Count (150-450) x10^3/uL MPV (7.5-11.0) fL Gran % (36.0-66.0) % Immature Gran % (Auto) (0.00-0.4) % Nucleat RBC Rel Count (0.00-0.1) % Eos # (Auto) (0-0.5) x10^3/uL Immature Gran # (Auto) (0.00-0.03) x10^3u/L Absolute Lymphs (auto) (1.0-4.6) x10^3/uL Absolute Monos (auto) (0.0-1.3) x10^3/uL Absolute Nucleated RBC (0.00-0.01) x10^3u/L Lymphocytes % (24.0-44.0) % Monocytes % (0.0-12.0) % Eosinophils % (0.00-5.0) % Basophils % (0.0-0.4) % Absolute Granulocytes (1.4-6.9) x10^3/uL Basophils # (0-0.4) x10^3/uL Sodium 139 (137-145) mmol/L Potassium 4.7 (3.5-5.1) mmol/L Chloride 104 (98-107) mmol/L Carbon Dioxide 26 (22-30) mmol/L Anion Gap 14.0 (5-15) MEQ/L BUN 7 (7-17) mg/dL Creatinine 0.71 (0.52-1.04) mg/dL Estimated GFR > 60.0 ML/MIN Glucose 106 (74-106) mg/dL Calcium 8.8 (8.4-10.2) mg/dL Total Bilirubin 0.90 (0.2-1.3) mg/dL AST 30 (14-36) U/L ALT 22 (0-35) U/L Alkaline Phosphatase 121 (38-126) U/L Troponin I < 0.012 (0.000-0.034) ng/mL Serum Total Protein 8.1 (6.3-8.2) g/dL Albumin 4.4 (3.5-5.0) g/dL Lipase 94 (23-300) U/L Urine Color (Yellow) Urine Appearance (Clear) Urine pH (4.6-8.0) Ur Specific [place] (1.005-1.030) Urine Protein (Negative) Urine Glucose (UA) (Negative) mg/dL Urine Ketones (Negative) Urine Blood (Negative) Urine Nitrite (Negative) Urine Bilirubin (Negative) Urine Urobilinogen (0.2) mg/dL Ur Leukocyte Esterase (Negative) U Hyaline Cast (Auto) (0-2) /LPF Urine Microscopic RBC (0-5) /HPF Urine Microscopic WBC (0-5) /HPF Ur Epithelial Cells (None Seen) /HPF Urine Bacteria (None Seen) /HPF Urine Culture Reflexed (NO) Urine HCG, Qual NEGATIVE (NEGATIVE) 11/07/22 11/07/22 Range/Units 13:08 13:01 WBC 8.7 (4.0-10.5) x10^3/uL RBC 4.88 (4.1-5.4) x10^6/uL Hgb 14.3 (12.0-16.0) g/dL Hct 43.3 (35-47) % MCV 88.7 (78-100) fL MCH 29.3 (26-32) pg MCHC 33.0 (32-36) g/dL RDW 12.2 (11.5-14.0) % Plt Count 286 (150-450) x10^3/uL MPV 10.3 (7.5-11.0) fL Gran % 69.1 H (36.0-66.0) % Immature Gran % (Auto) 0.3 (0.00-0.4) % Nucleat RBC Rel Count 0.0 (0.00-0.1) % Eos # (Auto) 0.16 (0-0.5) x10^3/uL Immature Gran # (Auto) 0.03 (0.00-0.03) x10^3u/L Absolute Lymphs (auto) 1.80 (1.0-4.6) x10^3/uL Absolute Monos (auto) 0.66 (0.0-1.3) x10^3/uL Absolute Nucleated RBC 0.00 (0.00-0.01) x10^3u/L Lymphocytes % 20.6 L (24.0-44.0) % Monocytes % 7.6 (0.0-12.0) % Eosinophils % 1.8 (0.00-5.0) % Basophils % 0.6 (0.0-0.4) % Absolute Granulocytes 6.03 (1.4-6.9) x10^3/uL Basophils # 0.05 (0-0.4) x10^3/uL Sodium (137-145) mmol/L Potassium (3.5-5.1) mmol/L Chloride (98-107) mmol/L Carbon Dioxide (22-30) mmol/L Anion Gap (5-15) MEQ/L BUN (7-17) mg/dL Creatinine (0.52-1.04) mg/dL Estimated GFR ML/MIN Glucose (74-106) mg/dL Calcium (8.4-10.2) mg/dL Total Bilirubin (0.2-1.3) mg/dL AST (14-36) U/L ALT (0-35) U/L Alkaline Phosphatase (38-126) U/L Troponin I (0.000-0.034) ng/mL Serum Total Protein (6.3-8.2) g/dL Albumin (3.5-5.0) g/dL Lipase (23-300) U/L Urine Color Dark Yellow A (Yellow) Urine Appearance Clear (Clear) Urine pH 5.5 (4.6-8.0) Ur Specific [place] 1.025 (1.005-1.030) Urine Protein 30 (Negative) Urine Glucose (UA) Negative (Negative) mg/dL Urine Ketones Trace A (Negative) Urine Blood Negative (Negative) Urine Nitrite Negative (Negative) Urine Bilirubin Negative (Negative) Urine Urobilinogen 1.0 A (0.2) mg/dL Ur Leukocyte Esterase Trace A (Negative) U Hyaline Cast (Auto) 3-5 A (0-2) /LPF Urine Microscopic RBC 0-2 (0-5) /HPF Urine Microscopic WBC 11-20 A (0-5) /HPF Ur Epithelial Cells Few (None Seen) /HPF Urine Bacteria Rare A (None Seen) /HPF Urine Culture Reflexed YES (NO) Urine HCG, Qual (NEGATIVE) - Progress Progress: improved Progress Note: Patient is a 27-year-old female presents to our ED for evaluation of epigastric pain and nausea. Physical exam reveals epigastric tenderness. Testing includes CT abdomen pelvis, ultrasound right upper quadrant, CBC CMP lipase troponin. Urinalysis completed as well. CT abdomen pelvis initially nonremarkable. Patient states she has a history of cholelithiasis however no gallstones observed on today's ultrasound. CBC CMP lipase and an unremarkable. Troponin negative. Urinalysis significant for UTI. Patient received a dose of Macrobid in our ED. Patient received 2 doses of Zofran and Toradol. Pantoprazole administered as well. Patient received a liter of normal saline. 11/07/22 15:30 Complexity of problem addressed is moderate new diagnosis with uncertain prognosis Complexity of data reviewed and analyzed is moderate. Test ordered, test reviewed and analyzed. Patient served as independent historian. Risk of complication and or risk of morbidity/mortality of patient management is moderate. Prescriptions forwarded to patient's pharmacy include Zofran, pantoprazole, Macrobid for UTI. Patient discharged home. Patient agrees to follow-up with primary care doctor within 48 hours for reevaluation. Vital stable. No social determinants of health present to impede follow-up. at bedside. All questions answered. They voiced no other complaints or concerns at this time. Portions of this note were created with voice recognition technology. There may be grammatical, spelling, punctuation or sound alike errors 11/07/22 15:34 Counseled pt/family regarding: lab results, diagnosis, need for follow-up, rad results - Departure Departure Disposition: Home Clinical Impression: Epigastric pain, UTI (urinary tract infection), Nausea, Dehydration Condition: Stable Critical Care Time: No Referrals: THEO MULLINS [Primary Care Provider] - Follow up/PCP as directed Instructions: Nausea and Vomiting, Adult, Urinary Tract Infection, Adult ED Additional Instructions: Discharge/Care Plan SHIRLEY DE SOUZA MANUELA was seen on 11/07/22 in the Emergency Room. The patient was counseled regarding Diagnosis,Lab results, Imaging studies, need for follow up and when to return to the Emergency Room. Prescriptions given: Discharge Note I have spoken with the patient and/or caregivers. I have explained the patient's condition, diagnosis and treatment plan based on the information available to me at this time. I have answered the patient's and/or caregiver's questions and addressed any concerns. The patient and/or caregivers have as good understanding of the patient's diagnosis, condition and treatment plan as can be expected at this point. The vital signs have been stable. The patient's condition is stable and appropriate for discharge from the emergency department. The patient will pursue further outpatient evaluation with the primary care physician or other designated or consulting physician as outlined in the dischar ge instructions. The patient and/or caregivers are agreeable to this plan of care and follow-up instructions have been explained in detail. The patient and/or caregivers have received these instruction. The patient/and or caregivers are aware that any significant change in condition or worsening of symptoms should prompt an immediate return to this or the closest emergency department or call 911. Prescriptions: Ondansetron ODT 4 MG [Zofran Odt 4 mg] 4 mg PO Q6H PRN PRN #10 tablet PRN Reason: Vomiting Nitrofurantoin Macro 100 mg [Macrobid 100MG Capsule] 100 mg PO BID 7 Days #14 cap PANTOPRAZOLE 40 mg Tablet [Protonix 40MG Tablet] 40 mg PO DAILY 7 Days #7 tab
[2022-11-07 13:08] LABS: Absolute Neutrophil Ct (ANC) 6.03 x10^3/uL (1.4-6.9); BASOPHIL % 0.6 % (0.0-0.4); Basophil (Absolute #) 0.05 x10^3/uL (0-0.4); Eosinophil % 1.8 % (0.00-5.0); Eosinophil (Absolute #) 0.16 x10^3/uL (0-0.5); Hematocrit 43.3 % (35-47); Hemoglobin 14.3 g/dL (12.0-16.0); IMMATURE GRAN # 0.03 x10^3u/L (0.00-0.03); IMMATURE GRAN % 0.3 % (0.00-0.4); Lymphocytes % 20.6 % (24.0-44.0); Mean Cell Volume 88.7 fL (78-100); Mean Corpuscular Hemoglobin 29.3 pg (26-32); Mean Platelet Volume 10.3 fL (7.5-11.0); Monocyte (Absolute #) 0.66 x10^3/uL (0.0-1.3); Monocytes % 7.6 % (0.0-12.0); Neutrophil % 69.1 % (36.0-66.0); Platelet Count 286 x10^3/uL (150-450); Red Blood Count 4.88 x10^6/uL (4.1-5.4); Red Cell Distribution Width 12.2 % (11.5-14.0); White Blood Count 8.7 x10^3/uL (4.0-10.5)
[2022-11-07 13:09] LABS: Appearance Clear (Clear); Bacteria Rare /HPF (None Seen); Bilirubin Negative (Negative); Blood Negative (Negative); Epithelial Cells Few /HPF (None Seen); Glucose, Urine Negative (Negative); Ketones Trace (Negative); Leukocyte Esterase Trace (Negative); Nitrite Negative (Negative); Ph 5.5 (4.6-8.0); Protein,Urine Dip 30 (Negative); RBC 0-2 /HPF (0-5); Specific Gravity 1.025 (1.005-1.030)
[2022-11-07 13:10] LABS: HCG URINE TEST NEGATIVE (NEGATIVE)
[2022-11-07 13:16] LABS: ALBUMIN 4.4 g/dL (3.5-5.0); ALKALINE PHOSPHATASE 121 U/L (38-126); BLOOD UREA NITROGEN 7 mg/dL (7-17); CHLORIDE 104 mmol/L (98-107); Calcium 8.8 mg/dL (8.4-10.2); Carbon Dioxide 26 mmol/L (22-30); Creatinine 1 0.71 mg/dL (0.52-1.04); EST GLOMERULAR FILTRATION RATE > 60.0 ML/MIN; Glucose 106 mg/dL (74-106); LIPASE 94 U/L (23-300); Potassium 4.7 mmol/L (3.5-5.1); SGOT/AST 30 U/L (14-36); SGPT/ALT 22 U/L (0-35); SODIUM 139 mmol/L (137-145); Total Protein 8.1 g/dL (6.3-8.2)
[2022-11-07 13:23] LABS: ADD URINE CULTURE? YES (NO)
--- NOTE | 2022-11-07 14:01 | XRAY ---
CLINICAL HISTORY:pain COMPARISON:None; TECHNIQUES:Ultrasound examination of gallbladder was performed in real-time and duplex; FINDINGS: The liver is of average size, regular borders and normal echogenicity. No definite focal lesion in the images provided. The PV is patent with hepatopedal flow. The gallbladder is normally distended with normal wall thickness, No pericholecystic fluid, measuring about 0.17 cm. No calculus, mass or sludge is noted. CBD is not dilated measuring about 0.21 mm. Pancreas appears unremarkable. The right kidney measures about 10.37 x 3.83 x 4.4 cm, There is no evidence of mass, cyst, calculus or hydronephrosis. IMPRESSION: The gallbladder is unremarkable. Electronically Signed by: Mauricio Matthews MD. (11/07/2022 12:58:39 STAFF WRITER)
--- NOTE | 2022-11-07 14:55 | XRAY ---
CLINICAL HISTORY:Pain, pancreatitis? COMPARISON:None; TECHNIQUES:CT scan of the abdomen and pelvis with the intravenous administration of contrast material. 80 cc Isovue 370 given as IV contrast; FINDINGS: The liver is of average size, displaying regular contour and homogeneous texture. No diffuse parenchymal changes or focal lesions could be detected. Normal hepatic vascular pattern is noted with no evidence of vascular distortion, thrombotic venous occlusion, or compromise of the hepatic biliary drainage. The spleen is of average size with no abnormal focal parenchymal attenuation or montrell splenic collection. Both kidneys are of average size, shape and parenchymal thickness with no evidence of stones, back pressure changes or space-occupying lesions. The other retroperitoneal structures including the pancreas, adrenal glands and great vessels are grossly within normal limits. No significant lymph ana enlargement or ascetic fluid collection. The uterus, both adnexa and ischiorectal fossae show normal CT appearance. Inadequate filling of the urinary bladder with no stones, masses, or diverticula. The appendix is visualized. No signs of appendicitis. Bone window settings showed no evidence of fractures or destructive lesions. Lung window settings showed normal appearance of both basal lung segments. IMPRESSION: 1. Normal CT study of the abdomen and pelvis. 2. No evidence of acute pancreatitis. Electronically Signed by: Mauricio Matthews MD. (11/07/2022 13:52:59 OIL RIGGER)
[2022-11-07 15:15] VITALS: BP 122/75
[2022-11-07] MEDS ORDERED: Macrobid 100MG Capsule ONE (15:16)
[2022-11-07] MEDS ORDERED: Macrobid 100MG Capsule PO ONE (15:16)
[2022-11-07 15:19] VITALS: O2SAT 99
[2022-11-07] MEDS ORDERED: PROTONIX 40 MG IV IV ONE ×2 (15:23→15:29)
[2022-11-07] MEDS ORDERED: GI COCKTAIL 45 ML (Maalox/Lidocaine) PO ONE (15:45)
[2022-11-07] MEDS ORDERED: XYLOCAINE VISCOUS 2% 15 ML CUP ONE (15:51)
[2022-11-07] MEDS ORDERED: MAALOX ES 30 ML UNIT DOSE ONE (15:51)
[2022-11-07 16:04] VITALS: PULSE 63
== END 2022-11-07 16:06 | disposition home or self-care (01) ==
LOC: ED 12:09
DX: N39.0 Urinary tract infection, site not specified (principal); R10.13 Epigastric pain; R11.0 Nausea; E86.0 Dehydration; Z79.899 Other long term (current) drug therapy
CPT/HCPCS: 36000; 36415; 74177; 76705; 80053; 81001; 81025; 83690; 84484; 85025; 87086; 96360; 96374; 96375; 99284; J1885; J2405; A9270-GY

== ENCOUNTER 2024-07-11 04:47 | Emergency (ER) | payer OTHER ==
[2024-07-11 05:07] VITALS: TEMP 96.3
[2024-07-11 06:18] VITALS: O2SAT 100
[2024-07-11] MEDS ORDERED: TORAdol 30 mg Injection ONE (06:31)
[2024-07-11] MEDS: TORAdol 30 mg Injection IM ONE (06:32)
--- NOTE | 2024-07-11 06:32 | ERPHSYRPT ---
- History of Present Illness Time Seen by Provider: 07/11/24 06:09 Source: patient Exam Limitations: no limitations Patient Subjective Stated Complaint: pt states she was closing a window and was standing on a ledge. pt states that she fell and twisted her rt foot/ ankle. Triage Nursing Assessment: pt came into the er via wheelchair; pt transferred to cot per self; pt is axo x4; c/o foot pain; pt states 8/10 pain to rt foot/ ankle; no swelling or bruising present to rt foot; no deformity present to rt foot; strong rt pedal pulse; skin PDW; no respiratory distress present; vitals wnl Physician History: 29 years old female presented in the ER after she was closing a window while being on a ledge and fell with twisting her right foot last night. Patient reports moderate to severe sharp shooting pain with difficulty weightbearing and ambulation. Pain is reproducible with movements and partial relief with being still. No numbness or tingling distally. No injury anywhere else. Patient has tenderness in the proximal foot with some swelling especially on the medial side. Distal neurovascular intact. Intact passive range of motion. I have obtained x-rays which are negative for acute fracture dislocation reviewed by me, official report is pending. She is given Toradol for symptomatic relief, feeling a little better on reevaluation. I believe patient has foot sprain, placed in a long walking boot and recommended outpatient podiatry/orthopedics follow-up. Discussed signs symptoms of worsening needing return to ER which she seems understanding. Stable for discharge. Allergies/Adverse Reactions: Sulfa (Sulfonamide Antibiotics) Allergy (Verified 07/11/24 04:55) Rash venom-honey bee [bee venom (honey bee)] Allergy (Verified 07/11/24 04:55) Home Medications: Dextroamphetamine/Amphetamine [Dextroamp-Amphetamin 20 mg Tab] 20 mg PO DAILY 11/07/22 [History] Sertraline HCl [Zoloft] 25 mg PO DAILY 11/07/22 [History] Hx Tetanus, Diphtheria Vaccination/Date Given: Yes Hx Influenza Vaccination/Date Given: No Hx Pneumococcal Vaccination/Date Given: No Travel Risk - International Travel Have you traveled outside of the country in past 3 weeks: No - Emerging Infectious Disease Are you exhibiting symptoms associated with any current EIDs: No - Review of Systems Constitutional: No Symptoms Ears, Nose, & Throat: No Symptoms Respiratory: No Symptoms Cardiac: No Symptoms Abdominal/Gastrointestinal: No Symptoms Musculoskeletal: Injury, Joint Pain, Joint Swelling Skin: No Symptoms Neurological: No Symptoms - Past Medical History Pertinent Past Medical History: Yes Neurological History: No Pertinent History ENT History: No Pertinent History Cardiac History: No Pertinent History Respiratory History: No Pertinent History Endocrine Medical History: No Pertinent History Musculoskeletal History: No Pertinent History, Other GI Medical History: No Pertinent History History: No Pertinent History Psycho-Social History: Anxiety, Depression Female Reproductive Disorders: Endometriosis, Other Other Medical History: PT STATES SHE HAD GALL STONES THAT MAY NEED REMOVED AT A LATER DATE. - Past Surgical History Past Surgical History: Yes Neuro Surgical History: No Pertinent History Cardiac: No Pertinent History Respiratory: No Pertinent History Gastrointestinal: No Pertinent History Genitourinary: No Pertinent History Musculoskeletal: No Pertinent History Female Surgical History: No Pertinent History Other Surgical History: PT STATES NOSE BROKE IN 2018 ANSD REPAIRED - Female History Hx Last Menstrual Period: SEPTEMBER 30 2013 Hx Now: No - Social History Smoking Status: Never smoker Exposure to second hand smoke: Yes Drug Use: marijuana Patient Lives Alone: No - Social Determinants of Health Will the patient participate in the screening: Yes Do you worry about a steady place to live?: No Do you have any problems with any of the following?: No known problems In the past 12 months,have you had to go without utilities?: No Transportation Issues: No Has anyone in your support network made you feel unsafe?: No Have you or anyone in your house had to go without enough: No - Nursing Vital Signs Nursing Vital Signs: Initial Vital Signs Temperature 96.3 F 07/11/24 04:56 Pulse Rate 63 07/11/24 04:56 Respiratory Rate 14 07/11/24 04:56 Blood Pressure 96/55 07/11/24 04:56 O2 Sat by Pulse Oximetry 98 07/11/24 04:56 Pain Scale Pain Intensity 8 - Physical Exam General Appearance: no apparent distress Neck Exam: normal inspection, full range of motion Cardiovascular/Respiratory Exam: normal breath sounds, regular rate/rhythm Ankle Exam: bilateral ankle: non-tender Foot Exam: right foot: bone tenderness, limited range of motion, pain, soft tissue tenderness, swelling Neuro/Tendon Exam: normal sensation, normal motor functions, normal tendon functions Mental Status Exam: alert, oriented x 3, cooperative Skin Exam: normal color SpO2 Interpretation: normal SpO2: 100 O2 Delivery: Room Air Ordered Tests: Medication Summary Discontinued Medications Generic Name Dose Route Start Last Admin Trade Name Janet PRN Reason Stop Dose Admin Ketorolac Tromethamine 30 mg 07/11/24 06:29 07/11/24 06:32 Ketorolac Tromethamine 30 Mg/Ml Inj IM 07/11/24 06:30 30 mg STAT ONE Administration Ketorolac Tromethamine Confirm 07/11/24 06:31 Ketorolac Tromethamine 30 Mg/Ml Inj Administered 07/11/24 06:32 Dose 30 mg .ROUTE .STK-MED ONE - Progress Progress: improved, pain not gone completely Progress Note: 07/11/24 06:29 29 years old female presented in the ER after she was closing a window while being on a ledge and fell with twisting her right foot last night. Patient reports moderate to severe sharp shooting pain with difficulty weightbearing and ambulation. Pain is reproducible with movements and partial relief with being still. No numbness or tingling distally. No injury anywhere else. Patient has tenderness in the proximal foot with some swelling especially on the medial side. Distal neurovascular intact. Intact passive range of motion. I have obtained x-rays which are negative for acute fracture dislocation reviewed by me, official report is pending. She is given Toradol for symptomatic relief, feeling a little better on reevaluation. I believe patient has foot sprain, placed in a long walking boot and recommended outpatient podiatry/orthopedics follow-up. Discussed signs symptoms of worsening needing return to ER which she seems understanding. Stable for discharge. Counseled pt/family regarding: diagnosis, need for follow-up, rad results Medical Desision Making - Diagnostic Testing Diagnostic test were ordered, analyzed, and reviewed by me: Yes Radiological Interpretation: Interpreted by me, Reviewed by me - Risk of complications The pt has a mod risk of morbidity or mortality based on: Need for prescription drug management - Departure Departure Disposition: Home Clinical Impression: Right foot sprain Condition: Stable Critical Care Time: No Referrals: THEO MULLINS [Primary Care Provider] - Follow up with PCP 1 day BRANDY HSU DPM [ACTIVE STAFF] - Follow up/PCP as directed (Call for appointment) Instructions: Foot Sprain (DC) Additional Instructions: Intermittent ice application. Weightbearing as tolerated. Tylenol/ibuprofen as needed. Follow-up with podiatry/orthopedics for reevaluation. Return to ER for worsening Prescriptions: Ibuprofen 600 mg PO Q6HPRN PRN 10 Days #20 tablet PRN Reason: Pain
[2024-07-11 07:00] VITALS: BP 103/59; PULSE 53; RESP 19
--- NOTE | 2024-07-11 09:18 | XRAY ---
Indication: Pain following fall. Comparison: None 3 view right ankle obtained. No bony, articular, or soft tissue abnormalities.
--- NOTE | 2024-07-11 09:18 | XRAY ---
Indication: Pain following fall. Comparison: None 3 nonweightbearing views right foot obtained. No bony, articular, or soft tissue abnormalities.
== END 2024-07-11 06:59 | disposition home or self-care (01) ==
LOC: ED 04:47
DX: S93.601A Unspecified sprain of right foot, initial encounter (principal); W17.89XA Other fall from one level to another, initial encounter; Z79.899 Other long term (current) drug therapy
CPT/HCPCS: 73610; 73630; 96372; 99283; 99284; J1885; L4386